=== PATIENT | female | born 1990 | race Hispanic/Latino ===

== ENCOUNTER 2021-10-03 16:33 | Outpatient (CLI) | payer BC | END 2021-10-03 16:34 | disposition home or self-care (01) | LOC: CTENTCT 16:33 | PROVIDERS: ATTEND Otolaryngology Plastic Surgery within the Head & Neck | DX: J32.9 Chronic sinusitis, unspecified (principal) | CPT/HCPCS: 70486 ==

== ENCOUNTER 2021-11-10 09:59 | Outpatient (CLI) | payer BC ==
[2021-11-10 11:29] LABS: BHCG - Serum Negative (NEGATIVE); Pregs Control Background? CLEAR/WHITE (CLR/WHITE); Pregs Control Bar Appear? YES (CONTROL BAR)
== END 2021-11-10 10:00 | disposition home or self-care (01) ==
LOC: LABBT 09:59
PROVIDERS: ATTEND Otolaryngology Plastic Surgery within the Head & Neck
DX: Z01.812 Encounter for preprocedural laboratory examination (principal); J32.9 Chronic sinusitis, unspecified; J30.9 Allergic rhinitis, unspecified; J34.3 Hypertrophy of nasal turbinates; J33.9 Nasal polyp, unspecified; Z20.822 Contact with and (suspected) exposure to COVID-19
CPT/HCPCS: 84703; 85014; 87811

== ENCOUNTER 2021-11-15 07:49 | Day surgery (SDC) | payer BC ==
[2021-11-10 15:23] VITALS: BMI 31.7
[2021-11-15] MEDS ORDERED: Oxymetazoline HCl 0.05% (30 ML BOT) ONE (07:53)
[2021-11-15] MEDS ORDERED: EPINEPHrine 1 MG/ML AMP ONE (08:23)
[2021-11-15] MEDS ORDERED: Lidocaine 1% (PF) 30 ML VIAL ONE (08:23)
[2021-11-15] MEDS ORDERED: Bacitracin Zinc Ointment 30 gm TUBE ONE (08:23)
[2021-11-15] MEDS ORDERED: Famotidine/PF 20 mg/2ml Vial ONE (08:32)
[2021-11-15] MEDS ORDERED: fentaNYL Citrate/PF 100 MCG/2 ML SYRINGE ONE ×2 (08:32→10:37)
[2021-11-15] MEDS ORDERED: Rocuronium Bromide 10 MG/ML (10ML VIAL) ONE (08:40)
[2021-11-15] MEDS ORDERED: PROPOFOL 200 MG/20 ML VIAL ONE (08:40)
[2021-11-15] MEDS ORDERED: ePHEDrine 50 MG/ML VIAL ONE (08:40)
[2021-11-15] MEDS ORDERED: Dexamethasone 20 MG/5 ML VIAL ONE (08:40)
[2021-11-15] MEDS ORDERED: Ondansetron PF 4 MG/2 ML Vial ONE (08:40)
[2021-11-15] MEDS ORDERED: Lidocaine 1% MPF 2 ML VIAL ONE (08:40)
[2021-11-15] MEDS ORDERED: Esmolol 100 MG/10 ML VIAL ONE (08:40)
[2021-11-15] MEDS ORDERED: methylPREDNISolone Acetate 40 mg/ml Vial ONE (09:17)
[2021-11-15] MEDS ORDERED: SUGAMMADEX SODIUM 200 MG/2 ML VIAL ONE (10:36)
[2021-11-15] MEDS ORDERED: Propofol 500 MG/50 ML VIAL ONE (10:38)
[2021-11-15] MEDS ORDERED: Fentanyl 100 MCG/2 ML VIAL ONE ×2 (11:04→11:26)
[2021-11-15] MEDS ORDERED: Hydrocodone-Acetamin 15 ML UDCUP ONE (12:42)
== END 2021-11-15 13:31 | disposition home or self-care (01) ==
LOC: SDC 07:49
PROVIDERS: ATTEND Otolaryngology Plastic Surgery within the Head & Neck
DX: J32.4 Chronic pansinusitis (principal); J30.89 Other allergic rhinitis; B48.8 Other specified mycoses; J33.8 Other polyp of sinus; J34.2 Deviated nasal septum; J34.3 Hypertrophy of nasal turbinates
CPT/HCPCS: 88304; C2625; J0171; J1100; J2001; J2405; J2704; J2920; J3010; J3490; S0028

== ENCOUNTER 2022-06-22 09:54 | Outpatient (CLI) | payer BC ==
[2022-06-22 11:19] LABS: BHCG - Serum Negative (NEGATIVE); Pregs Control Background? CLEAR/WHITE (CLR/WHITE); Pregs Control Bar Appear? YES (CONTROL BAR)
== END 2022-06-22 09:55 | disposition home or self-care (01) ==
LOC: LABBT 09:54
PROVIDERS: ATTEND Otolaryngology Plastic Surgery within the Head & Neck
DX: Z01.812 Encounter for preprocedural laboratory examination (principal); J32.4 Chronic pansinusitis; J34.3 Hypertrophy of nasal turbinates
CPT/HCPCS: 84703; 85014